=== PATIENT | female | born 1950 | race Caucasian/White ===

== ENCOUNTER 2017-04-19 09:25 | Outpatient (CLI) | payer MEDICARE, OTHER ==
[2014-11-23 09:52] VITALS: BP 107/61
--- NOTE | 2017-04-19 15:18 | Diagnostic Imaging Report ---
ALLEN THOMPSON [facility] [address] [facility] [address] [address] Report Submission Date: Apr 19, 2017 10:22:57 AM CDT Patient Study Name: JOSUE VENTURA Date: Apr 19, 2017 9:38:19 AM CDT Modality Type: CR Gender: F Description: UPPER EXTREMITY : 54 Institution: [facility] Physician: ALLEN THOMPSON Examination: Plain film hand History: Hand discomfort Comparison exams: None available Findings: 3 views the hand demonstrates osteopenia. Fracture at the base of the 5th metacarpal. Articular degenerative changes including the 1st carpal metacarpal articulation. No soft tissue abnormality. Impression: Fracture base 5th metacarpal Electronically signed on Apr 19, 2017 10:22:57 AM CDT by: Michele LEBLANC
== END 2017-04-19 09:26 ==
LOC: RAD 09:25
PROVIDERS: ATTEND Family Medicine
DX: R52 Pain, unspecified (principal)
CPT/HCPCS: 73130

== ENCOUNTER 2017-05-16 14:12 | Outpatient (CLI) | payer MEDICARE, OTHER ==
[2014-11-23 09:52] VITALS: BP 107/61
--- NOTE | 2017-05-16 21:20 | Diagnostic Imaging Report ---
DEA [facility] [address] [address] [facility] [address] [address] Report Submission Date: May 16, 2017 3:10:31 PM CDT Patient Study Name: JOSUE VENTURA Date: May 16, 2017 2:19:17 PM CDT Modality Type: CR Gender: F Description: UPPER EXTREMITY : 54 Institution: [facility] Physician: DEA Examination: Plain film hand History: Prior 5th metacarpal fracture Comparison exams: 19 April 2017 Findings: 3 views the hand demonstrates generalized osteopenia. Fracture with callus formation base 5th metacarpal. Articular degenerative changes. No soft tissue abnormalities. Impression: Fracture base 5th metacarpal with callus formation. Osteopenia and degenerative changes. Electronically signed on May 16, 2017 3:10:31 PM CDT by: Michele LEBLANC
== END 2017-05-16 14:13 ==
LOC: RAD 14:12
PROVIDERS: ATTEND Family Medicine
DX: S62.336D Displaced fracture of neck of fifth metacarpal bone, right hand, subsequent encounter for fracture with routine healing (principal); X58.XXXA Exposure to other specified factors, initial encounter; Y93.9 Activity, unspecified; Y99.9 Unspecified external cause status
CPT/HCPCS: 73130

== ENCOUNTER 2017-06-08 13:36 | Outpatient (CLI) | payer MEDICARE, OTHER ==
[2014-11-23 09:52] VITALS: BP 107/61
--- NOTE | 2017-06-08 15:42 | Diagnostic Imaging Report ---
DEA [facility] [address] [address] [facility] [address] [address] Report Submission Date: Jun 08, 2017 2:23:02 PM CDT Patient Study Name: JOSUE VENTURA Date: Jun 08, 2017 1:42:04 PM CDT Modality Type: CR Gender: F Description: UPPER EXTREMITY : 54 Institution: [facility] Physician: DEA Examination: Plain film hand History: Prior 5th metacarpal fracture Comparison exams: 16 May 2017 and 19 April 2017 Findings: 3 views the hand demonstrates generalized osteopenia. Fracture deformity at the base of the 5th metacarpal. Callus formation. Scattered articular degenerative changes. No obvious soft tissue abnormality. Impression: Healing fracture base 5th metacarpal with callus formation. No new fracture lines identified. Generalized osteopenia and articular degenerative changes. Electronically signed on Jun 08, 2017 2:23:02 PM CDT by: Michele LEBLANC
== END 2017-06-08 13:37 ==
LOC: RAD 13:36
PROVIDERS: ATTEND Family Medicine
DX: S62.336D Displaced fracture of neck of fifth metacarpal bone, right hand, subsequent encounter for fracture with routine healing (principal); X58.XXXA Exposure to other specified factors, initial encounter; Y93.9 Activity, unspecified; Y99.9 Unspecified external cause status
CPT/HCPCS: 73130

== ENCOUNTER 2017-07-18 14:53 | Outpatient (CLI) | payer MEDICARE, OTHER ==
[2014-11-23 09:52] VITALS: BP 107/61
--- NOTE | 2017-07-19 11:36 | OP Clinic Progress Note ---
REASON FOR VISIT: Sanjuana is a 70-year-old lady with a lesion above tooth 8 and noted by her dentist. There is a dark bluish area above tooth 8. There is an absent tooth just anterior to that. There is a sore area in the midline on the hard palate just behind the 2 medial incisors. She does wear a partial over that area but that area blanches easily. It is just minimally discolored and has more of a little red hue to it. This appears to be secondary to a compressive effect from the partial that sits right on top of it. The dark bluish lesion, although it appears to probably be more vascular, still remains of some concern. The patient is given the option of watchful waiting or biopsy. She has chosen a biopsy. Four or five drops of 1:100,000 epinephrine and Xylocaine was locally injected. A biopsy was taken and the microscope was used to do this to try to make sure there was adequate tissue. I tried to do this and get adequate tissue without leaving too large of an area at the biopsy site. The patient tolerated the procedure well. PLAN: She is discharged to follow up next week. I encouraged either a soft diet or chewing on the left side and using mouthwash or Lavoris and very lightly maybe finger cleaning it if it gets a small wet scab on it. cc: Dr. Sahra LEBLANC
== END 2017-07-18 15:00 ==
LOC: ENT 14:53
PROVIDERS: ATTEND Otolaryngology
DX: K13.79 Other lesions of oral mucosa (principal)
CPT/HCPCS: 40808; G0463

== ENCOUNTER 2017-07-25 13:13 | Outpatient (CLI) | payer MEDICARE, OTHER ==
[2014-11-23 09:52] VITALS: BP 107/61
--- NOTE | 2017-07-26 12:35 | OP Clinic Progress Note ---
REASON FOR VISIT: Sanjuana is seen in follow up of a biopsy of a darkish discoloration of tissue above about tooth #8. Last week that was biopsied in the office under local anesthetic which the patient tolerated. Looking in the mouth, it appears to be healing adequately. There is still a soft coagulum. There is no evidence of infection. I also looked in the nose to see if there is any discoloration of mucous membranes there. I personally talked with the pathologist looking the biopsy tissue. The mucosal appears to be non-malignant. Under this, there is a stratum level of darkish material and some foreign body reaction. It appears to be more of amalgam leaching from dental fillings more than likely. In any event, it is not malignant and that is the best interpretation from the pathologist. Two pathologists have looked at it and I personally talked with the pathologist. PLAN: At this point, I believe it needs no further treatment. Although the biopsy site is not totally healed yet, it appears to be healing adequately. No further treatment. cc: MURALI Workman
== END 2017-07-25 13:14 ==
LOC: ENT 13:13
PROVIDERS: ATTEND Otolaryngology
DX: K13.79 Other lesions of oral mucosa (principal)
CPT/HCPCS: G0463

== ENCOUNTER 2018-03-11 07:25 | Day surgery (SDC) | payer MEDICARE, OTHER ==
[2014-11-23 09:52] VITALS: BP 107/61
[~2018-03-11 07:25] MED LIST: LACTATED RINGERS 1,000 ML IV.SOLN IV ONE; PROPOFOL 200 MG/20 ML VIAL IV ONE; SALINE FLUSH 10 ML DISP.SYRIN IVF ONE
--- NOTE | 2018-03-14 09:36 | GI Report ---
REFERRING PHYSICIAN: Dr. Sahra Piña QUALITY PROJECT MANAGER: Ismael Turk MD PROCEDURE MEDICATION: Propofol as per anesthesia. INDICATIONS: This is a 67-year-old woman who lives in a nursing care facility after a stroke. She has had Parra's esophagus. There has been no dysplasia in the past. She is on a qaax-nvu-m-half of medications but omeprazole or a PPI is not listed on her medication list. She denies any change in her swallowing. PROCEDURE PERFORMED: Endoscopy and biopsies. PROCEDURE: An Olympus video endoscope is passed through the esophagus under direct visualization. She does have severe distal esophagitis with some ulcerations and some bleeding and at least a 4 to 5 cm segment of Parra's, a large hiatal hernia, and a wide open GE junction. Fundus, body, and antrum of the stomach are normal. Pylorus is open. Duodenal bulb and first part of the duodenum exam was normal. We came back and biopsied the distal 4 or 5 cm of the esophagus. She has severe esophagitis and probably persistent Parra's. RECOMMENDATIONS: 1. She really needs to be indefinitely on a PPI. I am not sure why that is not on her medication list. 2. She needs to sleep with her bed elevated at least 3 inches. 3. No eating late at night. 4. Pending the biopsies, she may need to be looked at again in 3 years, but she definitely needs to be on a PPI daily indefinitely. cc: Dr. Sahra Piña. [facility]
== END 2018-03-11 07:26 ==
LOC: OPSURG 07:25
PROVIDERS: ATTEND Internal Medicine Gastroenterology
DX: K22.70 Barrett's esophagus without dysplasia (principal)
CPT/HCPCS: 43239; 88305; 88313; J2704; J7120; S1016

== ENCOUNTER 2019-03-25 18:14 | Outpatient (CLI) | payer MEDICARE, OTHER ==
[2014-11-23 09:52] VITALS: BP 107/61
[2019-03-25 18:25] LABS: BASOPHILS % 0.5 % (0.0-1.5); NEUTROPHILS # 16.2 # k/uL (1.4-7.7)
[2019-03-25 18:49] LABS: eGFR (Non-African) > 60
== END 2019-03-25 18:16 ==
LOC: LAB 18:14
PROVIDERS: ATTEND Family Medicine
DX: D64.9 Anemia, unspecified (principal); I10 Essential (primary) hypertension
CPT/HCPCS: 80053; 85025

== ENCOUNTER 2019-03-28 09:25 | Inpatient (IN) | payer MEDICARE, OTHER ==
[2019-03-28] MEDS ORDERED: 0.9 % SODIUM CHLORIDE 1,000 ML IV ONE (09:46)
[2019-03-28] MEDS ORDERED: IPRATROPIUM/ALBUTEROL SULFATE 3 ML AMPUL.NEB NEB ONE ×2 (09:54→09:55)
--- NOTE | 2019-03-28 09:54 | ED Physician Documentation ---
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 She had been started on antibiotic two days ago for URI. She has started to run a fever and she has shortness of breath) - ROS CONST: fever, recent illness EYES/ENT: denies: sore throat, nasal drainage, nasal congestion CVS/RESP: shortness of breath, cough. denies: chest pain GI/: none MS/SKIN/LYMPH: none NEURO/PSYCH: denies: headache, fainting, dizziness, tingling, numbness, difficulty walking - PAST HX Past History: hypertension Surgeries/Procedures: other (Unknown) Immunizations: UTD Allergies/Adverse Reactions: Allergies Allergy/AdvReac Type Severity Reaction Status Date / Time morphine Allergy Verified 03/28/19 10:00 Home Medications: Ambulatory Orders Medication Instructions Recorded Acetaminophen [Tylenol] 2 tab PO Q4 PRN 03/28/19 Baclofen 0.5 tab PO HS 03/28/19 Benztropine Mesylate [Cogentin] 1 tab PO BID 03/28/19 Carbidopa/Levodopa (Nf) [Sinemet 1 tab PO TID 03/28/19 Cr 25-100 (Nf)] Carboxymethylcellulos/Glycerin 1 drop OP HS 03/28/19 [Refresh Optive Gel Eye Drops] Carboxymethylcellulose Sodium 1 drop OP TID 03/28/19 [Refresh Tears] Citalopram Hydrobromide [Celexa] 1 tab PO DAILY 03/28/19 Citalopram Hydrobromide [Celexa] 1 tab PO DAILY 03/28/19 Ferrous Sulfate [Iron] 1 tab PO DAILY 03/28/19 Gabapentin [Neurontin] 1 tab PO BID 03/28/19 Ibuprofen [Ibu] 1 tab PO Q6 PRN 03/28/19 Ipratropium/Albuterol Sulfate 1 vial INH Q4 PRN 03/28/19 [Duoneb] Loperamide HCl [Loperamide] 1 tab PO PRN PRN 03/28/19 Mag Hydrox/Aluminum Hyd/Simeth 30 ml PO PRN PRN 03/28/19 [Mylanta] Olanzapine [Zyprexa] 1 tab PO DAILY 03/28/19 Olanzapine [Zyprexa] 1 tab PO HS 03/28/19 Omeprazole (Nf) [Prilosec (Nf)] 1 tab PO DAILY 03/28/19 Simethicone [Gas-X] 1 tab PO PRN PRN 03/28/19 Thiamine HCl [Vitamin B-1] 1 tab PO DAILY 03/28/19 Topiramate [Topamax] 1 tab PO DAILY 03/28/19 Topiramate [Topamax] 1.5 tab PO HS 03/28/19 traZODone HCL [Desyrel] 0.5 tab PO Q8 03/28/19 - SOCIAL HX Smoking History: non-smoker Alcohol Use: none Drug Use: none - FAMILY HX Family History: No - VITAL SIGNS Vital Signs: Vital Signs Temp Pulse Resp BP Pulse Ox 107/61 11/23/14 09:51 - REVIEWED ASSESSMENTS Nursing Assessment Reviewed: Yes Vitals Reviewed: Yes Progress - Progress Progress: 1030: mild improvement in wheezing post neb DG 1045: Discussed case with Dr Lange - pt failed outpt treatment and is in need of oxygen supplementation - will admit pt DG ED Results Lab/Radiology - Radiology Radiology Impressions: Exam: AP chest. History: Pneumonia. No previous studies are available for comparison. Perihilar infiltrates are noted. Left basilar atelectasis with pleural effusions are noted. Cardiac silhouette is prominent with atherosclerotic plaques seen in the aorta. Impression: Perihilar infiltrates. Left basilar atelectasis with pleural effusion. Electronically signed on Mar 28, 2019 10:09:18 AM CDT by: Jeffrey Layton - Orders Orders: ED Orders Category Date Time Status IV Started NOW Care 03/28/19 09:46 Ordered CHEST 1VIEW [RAD] Stat Exams 03/28/19 Ordered BLOOD CULTURE Stat Lab 03/28/19 Ordered CBC/PLATELET/DIFF Stat Lab 03/28/19 09:45 Ordered CMP Stat Lab 03/28/19 09:45 Ordered LACTATE Stat Lab 03/28/19 Ordered 0.9 % Sodium Chloride [Normal Saline] 1,000 ml Med 03/28/19 09:46 Ordered IV NOW General Adult Physical Exam - PHYSICAL EXAM GENERAL APPEARANCE: no distress EENT: eye inspection normal, dry mucous membranes NECK: normal inspection RESPIRATORY: no resp distress, wheezes CVS: reg rate & rhythm, heart sounds normal, equal pulses ABDOMEN: soft, no organomegaly, normal bowel sounds, no abdominal bruit, no distension BACK: normal inspection SKIN: warm/dry, pallor EXTREMITIES: non-tender NEURO: oriented X3, sensation nml, mood/affect nml, other (per staff with her she has not had any change in mental status ) Discharge Clincal Impression: Pneumonia Qualifiers: Pneumonia type: due to unspecified organism Laterality: bilateral Lung location: unspecified part of lung Qualified Code(s): J18.9 - Pneumonia, unspecified organism Referrals: Sahra Piña MD [Primary Care Provider] - 2 Days Disposition: 09 ADMITTED INPATIENT Decision to Admit: [id number] Date of Decison to Admit: 03/28/19 Decision Time: 10:48
[2019-03-28 10:06] LABS: BASOPHILS % 0.5 % (0.0-1.5); NEUTROPHILS # 10.5 # k/uL (1.4-7.7)
--- NOTE | 2019-03-28 10:10 | Diagnostic Imaging Report ---
HELLEN TIMMONS [facility] [address] [facility] [address] [place], [place]. [address] Report Submission Date: Mar 28, 2019 10:09:18 AM CDT Patient Study Name: JOSUE VENTURA Date: Mar 28, 2019 9:46:20 AM CDT Modality Type: DX Gender: F Description: CHEST 1VIEW : 54 Institution: [facility] Physician: HELLEN TIMMONS Exam: AP chest. History: Pneumonia. No previous studies are available for comparison. Perihilar infiltrates are noted. Left basilar atelectasis with pleural effusions are noted. Cardiac silhouette is prominent with atherosclerotic plaques seen in the aorta. Impression: Perihilar infiltrates. Left basilar atelectasis with pleural effusion. Electronically signed on Mar 28, 2019 10:09:18 AM CDT by: Jeffrey LEBLANC
[2019-03-28 10:18] LABS: eGFR (Non-African) > 60
[2019-03-28] MEDS ORDERED: methylPREDNISolone SOD SUCC 125 MG/2 ML VIAL IVP ONE (10:46)
[2019-03-28] MEDS ORDERED: cefTRIAXone SODIUM 1 GM in 0.9 % SODIUM CHLORIDE 50 ML IV ONE (10:46)
[2019-03-28 12:10] VITALS: BMI 23.2
[2019-03-28] MEDS: ENOXAPARIN SODIUM 40 MG/0.4 ML DISP.SYRIN SQ SCH (13:00)
[2019-03-28] MEDS: 0.9 % SODIUM CHLORIDE 1,000 ML IV SCH (13:00)
[2019-03-28] MEDS ORDERED: 0.9 % SODIUM CHLORIDE 250 ML IV ONE (13:19)
[2019-03-28] MEDS ORDERED: AZITHROMYCIN 500 MG VIAL IV ONE (13:19)
--- NOTE | 2019-03-28 13:34 | History and Physical Report ---
History of Present Illnes - History of Present Illness Reason for Visit: Pneumonia, mental status changes, hypotension, dehydration History of Present Illness: This is a 68 year old female resident of [facility] who has been having some increased dyspnea and was noted to have an elevated WBCof 18K three days ago. Since then, she has continued to deteriorate. She has been on amoxicillin since approximately Sunday. She presented to the ER today due to having worsened dyspnea and decreased sensorium. She was found to have an infiltrate (films are unavailable to me at the time of this writing). WBC is improved. 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: CVA (brainstem bleed), Other (Parkinson's disease) Gastrointestinal: GERD Heme/Onc: Anemia NOS Psych: Anxiety, Depression, Psychosis, Other (Schizoaffective disorder, insomnia) - Past Surgical History Past Surgical History: Other (Patient cannot state, and no surgical history is noted in her notes.) - Past Social History Smoke: No Alcohol: None Drugs: None Lives: Jail Domestic Violence: Negative - Health Maintenance Health Maintenance: Cholesterol Influenza Vaccine: Current for this Influenza Season Pneumonia Vaccine: Yes Resuscitation Status: Resusciation Status Resuscitation Status Do Not Resuscitate - Unable to Obtain History Unable to Obtain: Yes Review of Systems - Review of Systems Constitutional: negative: Other Eyes: negative: other ENT: negative: Other Respiratory: Cough, Shortness of Breath Cardiovascular: negative: Chest Pain Gastrointestinal: negative: Nausea Genitourinary: negative: Dysuria Musculoskeletal: negative: Neck Pain Skin: negative: Rash Neurological: Weakness, Confusion - Medications/Allergies Allergies/Adverse Reactions: Allergies Allergy/AdvReac Type Severity Reaction Status Date / Time morphine Allergy Verified 03/28/19 10:00 Home Medications: Home Medications Acetaminophen [Tylenol] 2 tab PO Q4 PRN 03/28/19 Baclofen 0.5 tab PO HS 03/28/19 Benztropine Mesylate [Cogentin] 1 tab PO BID 03/28/19 Carbidopa/Levodopa (Nf) [Sinemet Cr 25-100 (Nf)] 1 tab PO TID 03/28/19 Carboxymethylcellulos/Glycerin [Refresh Optive Gel Eye Drops] 1 drop OP HS Carboxymethylcellulose Sodium [Refresh Tears] 1 drop OP TID 03/28/19 Citalopram Hydrobromide [Celexa] 1 tab PO DAILY 03/28/19 Citalopram Hydrobromide [Celexa] 1 tab PO DAILY 03/28/19 Ferrous Sulfate [Iron] 1 tab PO DAILY 03/28/19 Gabapentin [Neurontin] 1 tab PO BID 03/28/19 Ibuprofen [Ibu] 1 tab PO Q6 PRN 03/28/19 Ipratropium/Albuterol Sulfate [Duoneb] 1 vial INH Q4 PRN 03/28/19 Loperamide HCl [Loperamide] 1 tab PO PRN PRN 03/28/19 Mag Hydrox/Aluminum Hyd/Simeth [Mylanta] 30 ml PO PRN PRN 03/28/19 Olanzapine [Zyprexa] 1 tab PO DAILY 03/28/19 Olanzapine [Zyprexa] 1 tab PO HS 03/28/19 Omeprazole (Nf) [Prilosec (Nf)] 1 tab PO DAILY 03/28/19 Simethicone [Gas-X] 1 tab PO PRN PRN 03/28/19 Thiamine HCl [Vitamin B-1] 1 tab PO DAILY 03/28/19 Topiramate [Topamax] 1 tab PO DAILY 03/28/19 Topiramate [Topamax] 1.5 tab PO HS 03/28/19 traZODone HCL [Desyrel] 0.5 tab PO Q8 03/28/19 Current Inpatient Medications: Current Inpatient Medications Benztropine Mesylate (Cogentin) mg PO BID SHILO Carbidopa/Levodopa (Sinemet 25-100) 1 each PO TID SHILO Enoxaparin Sodium (Lovenox) 40 mg SQ DAILY [facility] Stop: 04/11/19 11:59 Ferrous Sulfate (Feosol) 325 mg PO 1100 SHIOL Gabapentin (Neurontin) 600 mg PO TID SHILO Sodium Chloride (Normal Saline) 1,000 mls @ 100 mls/hr IV Q10H SHILO Azithromycin 500 mg/ Sodium (Chloride) 250 mls @ 250 mls/hr IV Q24H SHILO Stop: 04/01/19 12:59 Ceftriaxone Sodium 1 gm/ (Sodium Chloride) 50 mls @ 100 mls/hr IV DAILY SHILO Ipratropium [place] (Atrovent Inh Soln) 0.5 mg NEB Q4 SHILO Olanzapine (Zyprexa Odt) 5 mg PO HS SHILO Olanzapine (Zyprexa Odt) 2.5 mg PO AM SHILO Topiramate (Topamax) mg PO DAILY SHILO Topiramate (Topamax) mg PO HS SHILO Exam - Exam Vital Signs: Vital Signs (72 hours) 03/28/19 03/28/19 03/28/19 09:25 11:35 12:01 Temperature 98.1 F 98.1 F 98.0 F Pulse Rate [ 72 Left] Pulse Rate [ 108 H 108 H Right Pulse ox] Respiratory 24 24 18 Rate Blood Pressure 75/54 75/54 82/58 [Left Arm] O2 Sat by Pulse 81 L 91 L 98 Oximetry 03/28/19 12:03 Temperature 98.0 F Pulse Rate [ 72 Left] Pulse Rate [ Right Pulse ox] Respiratory 18 Rate Blood Pressure 82/58 [Left Arm] O2 Sat by Pulse 98 Oximetry General: Other (Agonal breathing is noted. She is minimally responsive). No: Alert, Oriented to Person, Oriented to Place, Oriented to Time HEENT: Other (left facial paralysis is noted). No: Atraumatic Neck: No: Stridor Lungs: Respiratory Distress, Wheezes (with periods of apnea) Cardiovascular: Regular rate Murmur: No: Systolic Murmur Murmur Location: No: [place] Abdomen: Normal bowel sounds, Soft, No tenderness Genitourinary: No: Other Male Genitourinary: No: Other Female Genitourinary: No: Other Integumentary: No: Other Extremities: No tenderness/swelling Neurological: Strength Equal Bilat (in upper extremities she has reconciliation specialist with very slow response time. Plantar flexion of the right foot is noted against resistance is noted. This is not noted in the left foot. ). No: Normal gait, Normal speech Psych/Mental Status: No: Mental status NL - Laboratory Results Laboratory Results: Laboratory Results 03/28/19 03/28/19 09:45 09:45 WBC 11.80 RBC 4.46 Hgb 14.2 Hct 43.6 MCV 98.0 MCH 31.9 MCHC 32.7 RDW 12.6 Plt Count 228 Neut % (Auto) 88.8 H Lymph % (Auto) 2.4 L [place] % (Auto) 7.2 Eos % (Auto) 1.1 Baso % (Auto) 0.5 Neut # (Auto) 10.5 H Lymph # (Auto) 0.3 L [place] # (Auto) 0.9 Eos # (Auto) 0.1 Baso # (Auto) 0.1 Sodium 143 Potassium 3.4 L Chloride 108 H Carbon Dioxide 25 BUN 12 Creatinine 1.09 H Estimated Creat Clear 56 Est GFR ( Amer) > 60 Est GFR (Non-Af Amer) > 60 Glucose 185 H Lactate 4.0 H Calcium 9.5 Total Bilirubin 0.5 AST 30 ALT 26 Alkaline Phosphatase 70 Total Protein 7.2 Albumin 4.3 Assessment/Plan - Assessment/Plan (1) Pneumonia Status: Acute Current Visit: Yes Qualifiers: Pneumonia type: due to unspecified organism Laterality: bilateral Lung location: unspecified part of lung Qualified Code(s): J18.9 - Pneumonia, unspecified organism Assessment: Currently on Azithromycin and ceftriaxone. Plan: She is certainly in a very jacinto condition We will honor her NCB status (2) Hypotension Status: Acute Current Visit: Yes (3) History of CVA (cerebrovascular accident) Status: Acute Current Visit: Yes Assessment: She is not anticoagulated, and notes from her neurologist suggest that this was a hemorrhagic stroke. (4) Parkinsons disease Status: Acute Current Visit: Yes Assessment: Continue Sinemet (5) Schizoaffective disorder Status: Acute Current Visit: Yes Qualifiers: Schizoaffective disorder type: depressive Qualified Code(s): F25.1 - Schizoaffective disorder, depressive type (6) Depression Status: Acute Current Visit: Yes Qualifiers: Depression Type: major depressive disorder Major depression recurrence: recurrent Active/Remission status: currently active Psychotic features: with psychotic features VTE Assessment - RISK FACTOR SCORE VTE RISK FACTOR SCORES: AGE OVER 60 YEARS, ACUTE INFECTION OTHER THEN SEPSIS - RISK VTE MODERATE RISK: SCORE OF 2 (RISK PROXIMAL DVT 2-4%) PROPHYAXIS NEEDED (Hold anticoagulation due to history of brainstem bleed.)
[2019-03-28] MEDS: AZITHROMYCIN 500 MG in 0.9 % SODIUM CHLORIDE 250 ML IV SCH (13:55)
[2019-03-28] MEDS: GABAPENTIN 300 MG CAPSULE PO SCH ×2 (13:55→18:44)
[2019-03-28] MEDS: LEVODOPA PO SCH ×2 (13:56→18:44)
[2019-03-28] MEDS: IPRATROPIUM BROMIDE 0.5 MG/2.5 ML AMPUL.NEB NEB SCH ×3 (13:56→22:09)
[2019-03-28] MEDS: CARBIDOPA PO SCH ×2 (13:56→18:44)
[2019-03-29] MEDS: IPRATROPIUM BROMIDE 0.5 MG/2.5 ML AMPUL.NEB NEB SCH ×6 (00:47→20:20)
[2019-03-29] MEDS ORDERED: 0.9 % SODIUM CHLORIDE 1,000 ML IV ONE (01:11)
[2019-03-29] MEDS: 0.9 % SODIUM CHLORIDE 1,000 ML IV SCH (01:20)
[2019-03-29 07:36] LABS: BASOPHILS % 0.5 % (0.0-1.5); NEUTROPHILS # 11.4 # k/uL (1.4-7.7)
[2019-03-29 07:38] LABS: eGFR (Non-African) > 60
[2019-03-29] MEDS ORDERED: cefTRIAXone SODIUM 1 GM in 0.9 % SODIUM CHLORIDE 50 ML IV SCH (09:00)
[2019-03-29] MEDS: ENOXAPARIN SODIUM 40 MG/0.4 ML DISP.SYRIN SQ SCH (09:30)
--- NOTE | 2019-03-29 09:36 | Inpatient Progress Note ---
Subjective - Required Recertification Statement I anticipate X number of days because-include discharge plan: 2 - Review of Systems Events since last encounter: Danisha has had a remarkable improvement since admission. She is now alert and oriented. She does not remember yesterday. Her blood pressure is still soft, and IVF are running. She ate most of her breakfast and is not having any nausea. She is coughing, and would like some cough medicine for this. She is currently on 6LNC with a pulse oximetry of 92%. General: Denies: Chills, Night Sweats HEENT: Denies: Head Aches Pulmonary: Dyspnea, Cough Cardiovascular: Denies: Chest Pain, Palpitations Gastrointestinal: Denies: Nausea Genitourinary: Denies: Dysuria Musculoskeletal: Denies: Neck Pain, Shoulder Pain Neurological: Weakness. Denies: Confusion Objective - Exam Vitals and I&O: Vital Signs Temp 98.1 F 03/29/19 06:00 Pulse 99 H 03/29/19 06:00 Resp 18 03/29/19 06:00 BP 110/67 03/29/19 06:00 Pulse Ox 95 03/29/19 06:00 Intake & Output 03/28/19 03/28/19 03/29/19 11:59 23:59 11:59 Intake Total 340 360 Output Total 800 Balance -460 360 Weight 59.421 kg 59.421 kg 69.127 kg Intake: IV 100 Right Hand 100 Oral 240 360 Output: Urine 800 Other: Voiding Method Bedside Commode General: Alert, Oriented to Person, Oriented to Place, Oriented to Time, Cooperative HEENT: Atraumatic, Nose Mucous membr. moist/[place]. No: Scleral Icterus Neck: Supple, No JVD Lungs: Wheezes, Rales, Rhonchi, Prolonged Expiration Cardiovascular: Regular rate Abdomen: Normal bowel sounds, Soft, No tenderness Extremities: No clubbing, No cyanosis, No edema Skin: Normal, Pale Neurological: Normal speech Psych/Mental Status: Mental status NL (at baseline) - Results Results: Laboratory Results WBC 13.20 K/ul (4.00-12.00) H 03/29/19 07:05 RBC 3.86 M/ul (3.90-5.20) L 03/29/19 07:05 Hgb 12.3 g/dL (11.5-16.0) 03/29/19 07:05 Hct 37.0 % (34.5-46.5) 03/29/19 07:05 MCV 96.0 fl (80.0-100.0) 03/29/19 07:05 MCH 32.0 pg (28.0-34.0) 03/29/19 07:05 MCHC 33.3 g/dL (30.0-36.0) 03/29/19 07:05 RDW 12.6 % (11.3-14.3) 03/29/19 07:05 Plt Count 202 K/mm3 (130-400) 03/29/19 07:05 Neut % (Auto) 86.5 % (39.0-79.0) H 03/29/19 07:05 Lymph % (Auto) 6.0 % (16.0-50.0) L 03/29/19 07:05 [place] % (Auto) 6.2 % (0.0-11.0) 03/29/19 07:05 Eos % (Auto) 0.8 % (0.0-6.8) 03/29/19 07:05 Baso % (Auto) 0.5 % (0.0-1.5) 03/29/19 07:05 Neut # (Auto) 11.4 # k/uL (1.4-7.7) H 03/29/19 07:05 Lymph # (Auto) 0.8 # k/uL (0.6-4.0) 03/29/19 07:05 [place] # (Auto) 0.8 # k/uL (0.0-0.9) 03/29/19 07:05 Eos # (Auto) 0.1 # k/uL (0.0-0.6) 03/29/19 07:05 Baso # (Auto) 0.1 # k/uL (0.0-0.5) 03/29/19 07:05 Sodium 139 mmol/L (137-145) 03/29/19 07:05 Potassium 4.2 mmol/L (3.5-5.1) 03/29/19 07:05 Chloride 109 mmol/L (98-107) H 03/29/19 07:05 Carbon Dioxide 24 mmol/L (22-30) 03/29/19 07:05 BUN 17 mg/dL (7-17) 03/29/19 07:05 Creatinine 0.74 mg/dL (0.52-1.04) 03/29/19 07:05 Estimated Creat Clear 96 03/29/19 07:05 Est GFR ( Amer) > 60 (60-) 03/29/19 07:05 Est GFR (Non-Af Amer) > 60 (60-) 03/29/19 07:05 Glucose 110 mg/dL (74-106) H 03/29/19 07:05 Lactate 4.0 U/L (0.7-2.1) H 03/28/19 09:45 Calcium 8.5 mg/dL (8.4-10.2) 03/29/19 07:05 Total Bilirubin 0.2 mg/dL (0.2-1.3) 03/29/19 07:05 AST 55 U/L (15-46) H 03/29/19 07:05 ALT 14 U/L (13-69) 03/29/19 07:05 Alkaline Phosphatase 58 U/L (38-126) 03/29/19 07:05 Total Protein 6.1 g/dL (6.3-8.2) L 03/29/19 07:05 Albumin 3.5 g/dL (3.5-5.0) 03/29/19 07:05 Stool Guaiac Test Negative (NEGATIVE) 03/28/19 05:15 Assessment/Plan - Assessment/Plan (1) Pneumonia Status: Acute Current Visit: Yes Qualifiers: Pneumonia type: due to unspecified organism Laterality: bilateral Lung location: unspecified part of lung Qualified Code(s): J18.9 - Pneumonia, unspecified organism Assessment: Continue Azithromycin and ceftriaxone (2) Hypotension Status: Acute Current Visit: Yes Assessment: Improved, continue IVF, encourage PO fluid intake (3) History of CVA (cerebrovascular accident) Status: Acute Current Visit: Yes Assessment: No history of acute event (4) Parkinsons disease Status: Acute Current Visit: Yes (5) Schizoaffective disorder Status: Acute Current Visit: Yes Qualifiers: Schizoaffective disorder type: depressive Qualified Code(s): F25.1 - Schizoaffective disorder, depressive type Assessment: Chronic Plan: Continue Zyprexa and Topamax (6) Depression Status: Acute Current Visit: Yes Qualifiers: Depression Type: major depressive disorder Major depression recurrence: recurrent Active/Remission status: currently active Psychotic features: with psychotic features Assessment: Continue Zyprexa and Topiramate
[2019-03-29] MEDS ORDERED: BENZOCAINE/MENTHOL 1 EACH LOZENGE MM PRN (09:51)
[2019-03-29] MEDS ORDERED: guaiFENesin DM 100 MG/10 MG/5 ML 118ML BOTTLE PO PRN (09:51)
[2019-03-29] MEDS ORDERED: AZITHROMYCIN 500 MG VIAL IV ONE (10:14)
[2019-03-29] MEDS ORDERED: 0.9 % SODIUM CHLORIDE 100 ML IV ONE (10:15)
[2019-03-29] MEDS ORDERED: cefTRIAXone SODIUM 1 GM INJ ONE (10:16)
[2019-03-29] MEDS ORDERED: 0.9 % SODIUM CHLORIDE 250 ML IV ONE (10:16)
[2019-03-29] MEDS: CARBIDOPA PO SCH ×3 (10:18→17:35)
[2019-03-29] MEDS: LEVODOPA PO SCH ×3 (10:18→17:35)
[2019-03-29] MEDS: GABAPENTIN 300 MG CAPSULE PO SCH ×3 (10:21→17:36)
[2019-03-29] MEDS: FERROUS SULFATE 325 MG TABLET PO SCH (11:30)
[2019-03-29] MEDS: AZITHROMYCIN 500 MG in 0.9 % SODIUM CHLORIDE 250 ML IV SCH (14:22)
[2019-03-29] MEDS: CEFUROXIME AXETIL 250 MG TABLET PO SCH (20:30)
[2019-03-30] MEDS: IPRATROPIUM BROMIDE 0.5 MG/2.5 ML AMPUL.NEB NEB SCH ×5 (01:10→17:39)
[2019-03-30] MEDS ORDERED: CARBIDOPA PO ONE (09:24)
[2019-03-30] MEDS ORDERED: LEVODOPA PO ONE (09:24)
[2019-03-30] MEDS: CEFUROXIME AXETIL 250 MG TABLET PO SCH (09:33)
[2019-03-30] MEDS: AZITHROMYCIN 250 MG TABLET PO SCH (09:34)
[2019-03-30] MEDS: ENOXAPARIN SODIUM 40 MG/0.4 ML DISP.SYRIN SQ SCH (09:35)
[2019-03-30] MEDS: GABAPENTIN 300 MG CAPSULE PO SCH ×3 (09:35→18:04)
[2019-03-30] MEDS: CARBIDOPA PO SCH ×3 (09:39→18:04)
[2019-03-30] MEDS: LEVODOPA PO SCH ×3 (09:39→18:04)
[2019-03-30] MEDS: FERROUS SULFATE 325 MG TABLET PO SCH (11:25)
--- NOTE | 2019-03-30 11:44 | Inpatient Progress Note ---
Subjective - Required Recertification Statement I anticipate X number of days because-include discharge plan: 1 - Review of Systems Events since last encounter: Danisha continues to improve. She is still coughing but breathing better. She is alert and oriented. General: Denies: Chills, Night Sweats HEENT: Denies: Head Aches Pulmonary: Dyspnea, Cough Cardiovascular: Denies: Chest Pain Gastrointestinal: Denies: Nausea, Vomiting Genitourinary: Denies: Dysuria Musculoskeletal: Denies: Neck Pain Neurological: Weakness. Denies: Change in Speech, Confusion Objective - Exam Vitals and I&O: Vital Signs Temp 98.3 F 03/30/19 10:00 Pulse 92 H 03/30/19 10:00 Resp 18 03/30/19 10:00 BP 100/56 03/30/19 10:00 Pulse Ox 93 03/30/19 10:00 Intake & Output 03/29/19 03/29/19 03/30/19 11:59 23:59 11:59 Intake Total 360 800 240 Output Total 800 850 Balance 360 0 -610 Weight 69.127 kg 70.392 kg Intake: Oral 360 800 240 Output: Urine 800 850 Other: Voiding Method Indwelling Catheter Indwelling Catheter Indwelling Catheter # Bowel Movements 1 General: Alert, Oriented to Person, Oriented to Place, Oriented to Time, No acute distress HEENT: Atraumatic, PERRLA Neck: Supple, No JVD Lungs: Wheezes, Rales, Rhonchi, Prolonged Expiration, Decreased Air Movement Cardiovascular: Regular rate Abdomen: Normal bowel sounds Extremities: No clubbing, No cyanosis Skin: Normal, [place] Neurological: Normal gait Psych/Mental Status: Mental status NL Other physical findings: Left sided facial paralysis is noted, unchanged from last exam. Muniz catheter in place (will remove this morning) - Results Results: Laboratory Results WBC 13.20 K/ul (4.00-12.00) H 03/29/19 07:05 RBC 3.86 M/ul (3.90-5.20) L 03/29/19 07:05 Hgb 12.3 g/dL (11.5-16.0) 03/29/19 07:05 Hct 37.0 % (34.5-46.5) 03/29/19 07:05 MCV 96.0 fl (80.0-100.0) 03/29/19 07:05 MCH 32.0 pg (28.0-34.0) 03/29/19 07:05 MCHC 33.3 g/dL (30.0-36.0) 03/29/19 07:05 RDW 12.6 % (11.3-14.3) 03/29/19 07:05 Plt Count 202 K/mm3 (130-400) 03/29/19 07:05 Neut % (Auto) 86.5 % (39.0-79.0) H 03/29/19 07:05 Lymph % (Auto) 6.0 % (16.0-50.0) L 03/29/19 07:05 [place] % (Auto) 6.2 % (0.0-11.0) 03/29/19 07:05 Eos % (Auto) 0.8 % (0.0-6.8) 03/29/19 07:05 Baso % (Auto) 0.5 % (0.0-1.5) 03/29/19 07:05 Neut # (Auto) 11.4 # k/uL (1.4-7.7) H 03/29/19 07:05 Lymph # (Auto) 0.8 # k/uL (0.6-4.0) 03/29/19 07:05 [place] # (Auto) 0.8 # k/uL (0.0-0.9) 03/29/19 07:05 Eos # (Auto) 0.1 # k/uL (0.0-0.6) 03/29/19 07:05 Baso # (Auto) 0.1 # k/uL (0.0-0.5) 03/29/19 07:05 Sodium 139 mmol/L (137-145) 03/29/19 07:05 Potassium 4.2 mmol/L (3.5-5.1) 03/29/19 07:05 Chloride 109 mmol/L (98-107) H 03/29/19 07:05 Carbon Dioxide 24 mmol/L (22-30) 03/29/19 07:05 BUN 17 mg/dL (7-17) 03/29/19 07:05 Creatinine 0.74 mg/dL (0.52-1.04) 03/29/19 07:05 Estimated Creat Clear 96 03/29/19 07:05 Est GFR ( Amer) > 60 (60-) 03/29/19 07:05 Est GFR (Non-Af Amer) > 60 (60-) 03/29/19 07:05 Glucose 110 mg/dL (74-106) H 03/29/19 07:05 Lactate 4.0 U/L (0.7-2.1) H 03/28/19 09:45 Calcium 8.5 mg/dL (8.4-10.2) 03/29/19 07:05 Total Bilirubin 0.2 mg/dL (0.2-1.3) 03/29/19 07:05 AST 55 U/L (15-46) H 03/29/19 07:05 ALT 14 U/L (13-69) 03/29/19 07:05 Alkaline Phosphatase 58 U/L (38-126) 03/29/19 07:05 Total Protein 6.1 g/dL (6.3-8.2) L 03/29/19 07:05 Albumin 3.5 g/dL (3.5-5.0) 03/29/19 07:05 Stool Guaiac Test Negative (NEGATIVE) 03/28/19 05:15 Assessment/Plan - Assessment/Plan (1) Pneumonia Status: Acute Current Visit: Yes Qualifiers: Pneumonia type: due to unspecified organism Laterality: bilateral Lung location: unspecified part of lung Qualified Code(s): J18.9 - Pneumonia, unspecified organism Assessment: Continue current antibiotic therapy (2) Hypotension Status: Acute Current Visit: Yes Assessment: Encourage PO fluid intake (3) History of CVA (cerebrovascular accident) Status: Acute Current Visit: Yes Assessment: No new ischemia (4) Parkinsons disease Status: Acute Current Visit: Yes Assessment: Continue current dose of Sinemet (5) Schizoaffective disorder Status: Acute Current Visit: Yes Qualifiers: Schizoaffective disorder type: depressive Qualified Code(s): F25.1 - Schizoaffective disorder, depressive type Assessment: Continue Zyprexa and Topiramate (6) Depression Status: Acute Current Visit: Yes Qualifiers: Depression Type: major depressive disorder Major depression recurrence: recurrent Active/Remission status: currently active Psychotic features: with psychotic features
[2019-03-30] MEDS ORDERED: IPRATROPIUM/ALBUTEROL SULFATE 3 ML AMPUL.NEB NEB ONE (22:17)
[2019-03-31] MEDS: IPRATROPIUM BROMIDE 0.5 MG/2.5 ML AMPUL.NEB NEB SCH ×7 (00:31→20:10)
[2019-03-31] MEDS: GABAPENTIN 300 MG CAPSULE PO SCH ×3 (08:01→18:06)
[2019-03-31] MEDS: ENOXAPARIN SODIUM 40 MG/0.4 ML DISP.SYRIN SQ SCH (08:01)
[2019-03-31] MEDS: CARBIDOPA PO SCH ×3 (08:02→18:06)
[2019-03-31] MEDS: AZITHROMYCIN 250 MG TABLET PO SCH (08:02)
[2019-03-31] MEDS: LEVODOPA PO SCH ×3 (08:02→18:06)
[2019-03-31] MEDS: CEFUROXIME AXETIL 250 MG TABLET PO SCH ×2 (08:02→20:06)
[2019-03-31] MEDS: BENZTROPINE MESYLATE 0.5 MG TAB PO SCH ×4 (10:33→20:06)
[2019-03-31] MEDS: TOPIRAMATE 50 MG TABLET PO SCH ×2 (10:36→20:06)
[2019-03-31] MEDS: FERROUS SULFATE 325 MG TABLET PO SCH (12:13)
--- NOTE | 2019-03-31 13:20 | Inpatient Progress Note ---
Subjective - Required Recertification Statement I anticipate X number of days because-include discharge plan: 1 - Review of Systems Events since last encounter: Danisha is feeling a little weak today. We tried to get her weaned to 5LNC, however her pulse oximetry is only 87% on 5L, so we increased her back to 6LNC. She is a little more sleepy today. General: Denies: Chills, Night Sweats HEENT: Denies: Head Aches Pulmonary: Dyspnea, Cough Cardiovascular: Denies: Chest Pain Gastrointestinal: Denies: Nausea, Vomiting Genitourinary: Denies: Dysuria Musculoskeletal: Denies: Neck Pain, Deferred Neurological: Weakness. Denies: Change in Speech, Confusion Objective - Exam Vitals and I&O: Vital Signs Temp 97.7 F 03/31/19 09:11 Pulse 115 H 03/31/19 09:11 Resp 20 03/31/19 09:11 BP 117/75 03/31/19 09:11 Pulse Ox 90 L 03/31/19 10:00 Intake & Output 03/30/19 03/31/19 03/31/19 23:59 11:59 23:59 Intake Total 480 220 Output Total 600 850 Balance -120 -630 Weight 60.781 kg Intake: Oral 480 220 Output: Urine 600 850 Other: Voiding Method Bedside Commode Indwelling Catheter # Bowel Movements 0 General: Alert, Oriented to Person, Oriented to Place, Oriented to Time, Cooperative, Mild distress (respiratory) HEENT: Atraumatic, PERRLA, Other (left facial paralysis is noted) Neck: Supple, No JVD Lungs: Respiratory Distress, Wheezes, Rhonchi, Decreased Air Movement Cardiovascular: Regular rate Abdomen: Normal bowel sounds, Soft, No tenderness Extremities: No clubbing, No cyanosis Skin: Normal Neurological: Normal speech (at baseline) Psych/Mental Status: Mental status NL (at baseline) - Results Results: Laboratory Results WBC 13.20 K/ul (4.00-12.00) H 03/29/19 07:05 RBC 3.86 M/ul (3.90-5.20) L 03/29/19 07:05 Hgb 12.3 g/dL (11.5-16.0) 03/29/19 07:05 Hct 37.0 % (34.5-46.5) 03/29/19 07:05 MCV 96.0 fl (80.0-100.0) 03/29/19 07:05 MCH 32.0 pg (28.0-34.0) 03/29/19 07:05 MCHC 33.3 g/dL (30.0-36.0) 03/29/19 07:05 RDW 12.6 % (11.3-14.3) 03/29/19 07:05 Plt Count 202 K/mm3 (130-400) 03/29/19 07:05 Neut % (Auto) 86.5 % (39.0-79.0) H 03/29/19 07:05 Lymph % (Auto) 6.0 % (16.0-50.0) L 03/29/19 07:05 [place] % (Auto) 6.2 % (0.0-11.0) 03/29/19 07:05 Eos % (Auto) 0.8 % (0.0-6.8) 03/29/19 07:05 Baso % (Auto) 0.5 % (0.0-1.5) 03/29/19 07:05 Neut # (Auto) 11.4 # k/uL (1.4-7.7) H 03/29/19 07:05 Lymph # (Auto) 0.8 # k/uL (0.6-4.0) 03/29/19 07:05 [place] # (Auto) 0.8 # k/uL (0.0-0.9) 03/29/19 07:05 Eos # (Auto) 0.1 # k/uL (0.0-0.6) 03/29/19 07:05 Baso # (Auto) 0.1 # k/uL (0.0-0.5) 03/29/19 07:05 Sodium 139 mmol/L (137-145) 03/29/19 07:05 Potassium 4.2 mmol/L (3.5-5.1) 03/29/19 07:05 Chloride 109 mmol/L (98-107) H 03/29/19 07:05 Carbon Dioxide 24 mmol/L (22-30) 03/29/19 07:05 BUN 17 mg/dL (7-17) 03/29/19 07:05 Creatinine 0.74 mg/dL (0.52-1.04) 03/29/19 07:05 Estimated Creat Clear 96 03/29/19 07:05 Est GFR ( Amer) > 60 (60-) 03/29/19 07:05 Est GFR (Non-Af Amer) > 60 (60-) 03/29/19 07:05 Glucose 110 mg/dL (74-106) H 03/29/19 07:05 Lactate 4.0 U/L (0.7-2.1) H 03/28/19 09:45 Calcium 8.5 mg/dL (8.4-10.2) 03/29/19 07:05 Total Bilirubin 0.2 mg/dL (0.2-1.3) 03/29/19 07:05 AST 55 U/L (15-46) H 03/29/19 07:05 ALT 14 U/L (13-69) 03/29/19 07:05 Alkaline Phosphatase 58 U/L (38-126) 03/29/19 07:05 Total Protein 6.1 g/dL (6.3-8.2) L 03/29/19 07:05 Albumin 3.5 g/dL (3.5-5.0) 03/29/19 07:05 Stool Guaiac Test Negative (NEGATIVE) 03/28/19 05:15 Assessment/Plan - Assessment/Plan (1) Pneumonia Status: Acute Current Visit: Yes Qualifiers: Pneumonia type: due to unspecified organism Laterality: bilateral Lung location: unspecified part of lung Qualified Code(s): J18.9 - Pneumonia, unspecified organism Assessment: Continue current antibiotics HFN Continue supplemental oxygen (2) Hypotension Status: Acute Current Visit: Yes Qualifiers: Hypotension type: orthostatic hypotension Qualified Code(s): I95.1 - Orthostatic hypotension Assessment: Continue to push IVF (3) History of CVA (cerebrovascular accident) Status: Acute Current Visit: Yes Assessment: Remote history (4) Parkinsons disease Status: Acute Current Visit: Yes (5) Schizoaffective disorder Status: Acute Current Visit: Yes Qualifiers: Schizoaffective disorder type: depressive Qualified Code(s): F25.1 - Schizoaffective disorder, depressive type Assessment: Continue Zyprexa and Topiramate (6) Depression Status: Acute Current Visit: Yes Qualifiers: Depression Type: major depressive disorder Major depression recurrence: recurrent Active/Remission status: currently active Psychotic features: with psychotic features
--- NOTE | 2019-03-31 17:09 | Diagnostic Imaging Report ---
ROCHELLE HOLT [facility] [address] [facility] [address] [address] Report Submission Date: Mar 31, 2019 4:55:22 PM CDT Patient Study Name: JOSUE VENTURA Date: Mar 31, 2019 1:38:00 PM CDT Modality Type: DX Gender: F Description: CHEST 2VIEW : 54 Institution: [facility] Physician: ROCHELLE HOLT Exam: Chest two views. History: Shortness of breath. The examination is compared to study dated March 28, 2019. Persistent perihilar and bibasilar infiltrates are noted. Right pleural effusions are noted. Heart size is stable with atherosclerotic plaques seen in the aorta. Marked dilatation of the esophagus and stomach is again identified. Impression: Persistent perihilar and bibasilar infiltrates. Right pleural effusion. Marked distention of the esophagus and stomach is noted. Electronically signed on Mar 31, 2019 4:55:22 PM CDT by: Jeffrey LEBLANC
[2019-03-31] MEDS: TOPIRAMATE 100 MG TABLET PO SCH ×2 (19:12→19:16)
[2019-04-01] MEDS: IPRATROPIUM BROMIDE 0.5 MG/2.5 ML AMPUL.NEB NEB SCH ×6 (01:30→20:11)
[2019-04-01] MEDS: ENOXAPARIN SODIUM 40 MG/0.4 ML DISP.SYRIN SQ SCH (08:24)
[2019-04-01] MEDS: LEVODOPA PO SCH ×3 (08:24→17:26)
[2019-04-01] MEDS: GABAPENTIN 300 MG CAPSULE PO SCH ×3 (08:24→17:25)
[2019-04-01] MEDS: CARBIDOPA PO SCH ×3 (08:24→17:26)
[2019-04-01] MEDS: BENZTROPINE MESYLATE 0.5 MG TAB PO SCH ×2 (08:24→20:05)
[2019-04-01] MEDS: CEFUROXIME AXETIL 250 MG TABLET PO SCH ×2 (08:25→20:05)
[2019-04-01] MEDS: AZITHROMYCIN 250 MG TABLET PO SCH (08:25)
[2019-04-01] MEDS: TOPIRAMATE 50 MG TABLET PO SCH ×2 (08:25→20:05)
[2019-04-01] MEDS: FERROUS SULFATE 325 MG TABLET PO SCH (12:39)
--- NOTE | 2019-04-01 18:35 | Inpatient Progress Note ---
Subjective - Required Recertification Statement I anticipate X number of days because-include discharge plan: 1 - Review of Systems Events since last encounter: Danisha's oxygen requirements have come down significantly, and she is ambulating now at 4 LNC with her saturations in the low 90s. She says that she is feeling much better also. General: Denies: Chills, Night Sweats HEENT: Denies: Head Aches Pulmonary: Dyspnea, Cough Cardiovascular: Denies: Chest Pain Gastrointestinal: Denies: Nausea, Vomiting Genitourinary: Denies: Dysuria Musculoskeletal: Denies: Neck Pain Neurological: Weakness. Denies: Confusion Objective - Exam Vitals and I&O: Vital Signs Temp 98.7 F 04/01/19 17:58 Pulse 104 H 04/01/19 17:58 Resp 18 04/01/19 17:58 BP 91/59 04/01/19 17:58 Pulse Ox 91 L 04/01/19 17:58 Intake & Output 03/31/19 04/01/19 04/01/19 23:59 11:59 23:59 Intake Total 700 340 360 Output Total 1375 300 500 Balance -675 40 -140 Weight 134 kg Intake: Oral 700 340 360 Output: Urine 1375 300 500 Other: Voiding Method Indwelling Catheter Indwelling Catheter # Bowel Movements 1 0 General: Alert, Oriented to Person, Oriented to Place HEENT: Atraumatic, Other (left facial paralysis is noted.) Neck: Supple Lungs: Wheezes, Prolonged Expiration, Decreased Air Movement Cardiovascular: Regular rate Abdomen: Normal bowel sounds Extremities: No clubbing, No cyanosis, No edema Neurological: Normal speech Psych/Mental Status: Mental status NL (at baseline) - Results Results: Laboratory Results WBC 13.20 K/ul (4.00-12.00) H 03/29/19 07:05 RBC 3.86 M/ul (3.90-5.20) L 03/29/19 07:05 Hgb 12.3 g/dL (11.5-16.0) 03/29/19 07:05 Hct 37.0 % (34.5-46.5) 03/29/19 07:05 MCV 96.0 fl (80.0-100.0) 03/29/19 07:05 MCH 32.0 pg (28.0-34.0) 03/29/19 07:05 MCHC 33.3 g/dL (30.0-36.0) 03/29/19 07:05 RDW 12.6 % (11.3-14.3) 03/29/19 07:05 Plt Count 202 K/mm3 (130-400) 03/29/19 07:05 Neut % (Auto) 86.5 % (39.0-79.0) H 03/29/19 07:05 Lymph % (Auto) 6.0 % (16.0-50.0) L 03/29/19 07:05 [place] % (Auto) 6.2 % (0.0-11.0) 03/29/19 07:05 Eos % (Auto) 0.8 % (0.0-6.8) 03/29/19 07:05 Baso % (Auto) 0.5 % (0.0-1.5) 03/29/19 07:05 Neut # (Auto) 11.4 # k/uL (1.4-7.7) H 03/29/19 07:05 Lymph # (Auto) 0.8 # k/uL (0.6-4.0) 03/29/19 07:05 [place] # (Auto) 0.8 # k/uL (0.0-0.9) 03/29/19 07:05 Eos # (Auto) 0.1 # k/uL (0.0-0.6) 03/29/19 07:05 Baso # (Auto) 0.1 # k/uL (0.0-0.5) 03/29/19 07:05 Sodium 139 mmol/L (137-145) 03/29/19 07:05 Potassium 4.2 mmol/L (3.5-5.1) 03/29/19 07:05 Chloride 109 mmol/L (98-107) H 03/29/19 07:05 Carbon Dioxide 24 mmol/L (22-30) 03/29/19 07:05 BUN 17 mg/dL (7-17) 03/29/19 07:05 Creatinine 0.74 mg/dL (0.52-1.04) 03/29/19 07:05 Estimated Creat Clear 96 03/29/19 07:05 Est GFR ( Amer) > 60 (60-) 03/29/19 07:05 Est GFR (Non-Af Amer) > 60 (60-) 03/29/19 07:05 Glucose 110 mg/dL (74-106) H 03/29/19 07:05 Lactate 4.0 U/L (0.7-2.1) H 03/28/19 09:45 Calcium 8.5 mg/dL (8.4-10.2) 03/29/19 07:05 Total Bilirubin 0.2 mg/dL (0.2-1.3) 03/29/19 07:05 AST 55 U/L (15-46) H 03/29/19 07:05 ALT 14 U/L (13-69) 03/29/19 07:05 Alkaline Phosphatase 58 U/L (38-126) 03/29/19 07:05 Total Protein 6.1 g/dL (6.3-8.2) L 03/29/19 07:05 Albumin 3.5 g/dL (3.5-5.0) 03/29/19 07:05 Stool Guaiac Test Negative (NEGATIVE) 03/28/19 05:15 Assessment/Plan - Assessment/Plan (1) Pneumonia Status: Acute Current Visit: Yes Qualifiers: Pneumonia type: due to unspecified organism Laterality: bilateral Lung location: unspecified part of lung Qualified Code(s): J18.9 - Pneumonia, unspecified organism Assessment: Continue azithromycin and rocephin/nebulizers/wean oxygen Hope for discharge back to [facility] tomorrow. (2) Hypotension Status: Acute Current Visit: Yes Qualifiers: Hypotension type: orthostatic hypotension Qualified Code(s): I95.1 - Orthostatic hypotension Assessment: Continued, but with improved general condition (3) History of CVA (cerebrovascular accident) Status: Acute Current Visit: Yes Assessment: Remote (4) Parkinsons disease Status: Acute Current Visit: Yes Assessment: Continue current dose of Sinemet (5) Schizoaffective disorder Status: Acute Current Visit: Yes Qualifiers: Schizoaffective disorder type: depressive Qualified Code(s): F25.1 - Schizoaffective disorder, depressive type (6) Depression Status: Acute Current Visit: Yes Qualifiers: Depression Type: major depressive disorder Major depression recurrence: recurrent Active/Remission status: currently active Psychotic features: with psychotic features
[2019-04-02] MEDS: IPRATROPIUM BROMIDE 0.5 MG/2.5 ML AMPUL.NEB NEB SCH ×4 (01:29→14:29)
[2019-04-02 08:58] VITALS: BP 136/74
[2019-04-02] MEDS: BENZTROPINE MESYLATE 0.5 MG TAB PO SCH (09:02)
[2019-04-02] MEDS: GABAPENTIN 300 MG CAPSULE PO SCH ×2 (09:02→14:29)
[2019-04-02] MEDS: SIMETHICONE 80 MG TAB.CHEW PO SCH ×2 (09:02→12:34)
[2019-04-02] MEDS: CEFUROXIME AXETIL 250 MG TABLET PO SCH (09:02)
[2019-04-02] MEDS: LEVODOPA PO SCH ×2 (09:05→14:29)
[2019-04-02] MEDS: CARBIDOPA PO SCH ×2 (09:05→14:29)
[2019-04-02] MEDS: AZITHROMYCIN 250 MG TABLET PO SCH (09:05)
[2019-04-02] MEDS: ENOXAPARIN SODIUM 40 MG/0.4 ML DISP.SYRIN SQ SCH (09:05)
[2019-04-02] MEDS: TOPIRAMATE 50 MG TABLET PO SCH (09:05)
[2019-04-02] MEDS: FERROUS SULFATE 325 MG TABLET PO SCH (11:00)
--- NOTE | 2019-04-02 14:52 | Discharge Summary ---
Discharge Summary - Discharge [facility] Admission Date: 03/28/19 Discharge Date: 04/02/19 Discharge To: Care Home ([facility]) History of Present Illness: This is a 68 year old female resident of [facility] who has been having some increased dyspnea and was noted to have an elevated WBCof 18K three days ago. Since then, she has continued to deteriorate. She has been on amoxicillin since approximately Sunday. She presented to the ER today due to having worsened dyspnea and decreased sensorium. She was found to have an infiltrate (films are unavailable to me at the time of this writing). Condition at Discharge: Stable Home Medications: Ambulatory Orders Medication Instructions Recorded Acetaminophen [Tylenol] 2 tab PO Q4 PRN 03/28/19 Baclofen 0.5 tab PO HS 03/28/19 Benztropine Mesylate [Cogentin] 1 tab PO BID 03/28/19 Carbidopa/Levodopa (Nf) [Sinemet 1 tab PO TID 03/28/19 Cr 25-100 (Nf)] Carboxymethylcellulos/Glycerin 1 drop OP HS 03/28/19 [Refresh Optive Gel Eye Drops] Carboxymethylcellulose Sodium 1 drop OP TID 03/28/19 [Refresh Tears] Citalopram Hydrobromide [Celexa] 1 tab PO DAILY 03/28/19 Citalopram Hydrobromide [Celexa] 1 tab PO DAILY 03/28/19 Ferrous Sulfate [Iron] 1 tab PO DAILY 03/28/19 Gabapentin [Neurontin] 1 tab PO BID 03/28/19 Ibuprofen [Ibu] 1 tab PO Q6 PRN 03/28/19 Ipratropium/Albuterol Sulfate 1 vial INH Q4 PRN 03/28/19 [Duoneb] Loperamide HCl [Loperamide] 1 tab PO PRN PRN 03/28/19 Mag Hydrox/Aluminum Hyd/Simeth 30 ml PO PRN PRN 03/28/19 [Mylanta] Olanzapine [Zyprexa] 1 tab PO DAILY 03/28/19 Olanzapine [Zyprexa] 1 tab PO HS 03/28/19 Omeprazole (Nf) [Prilosec (Nf)] 1 tab PO DAILY 03/28/19 Simethicone [Gas-X] 1 tab PO PRN PRN 03/28/19 Thiamine HCl [Vitamin B-1] 1 tab PO DAILY 03/28/19 Topiramate [Topamax] 1 tab PO DAILY 03/28/19 Topiramate [Topamax] 1.5 tab PO HS 03/28/19 traZODone HCL [Desyrel] 0.5 tab PO Q8 03/28/19 Consultations this Visit: None Procedures this Visit: Other (Indwelling singletary catheter placement) Allergies/Adverse Reactions: Allergies Allergy/AdvReac Type Severity Reaction Status Date / Time morphine Allergy Verified 03/28/19 10:00 Patient Problems: Current Active Problems Problem Status Onset Depression Acute History of CVA (cerebrovascular accident) Acute Hypotension Acute Parkinsons disease Acute Pneumonia Acute Schizoaffective disorder Acute Discharge Summary: Patient was admitted for treatment of pneumonia and mental status changes. On admission the patient was obtunded and minimally responsive, however with hydration and antibiotics, she improved significantly. Her oxygen requirements were significantly elevated on hospital day 2 and she was placed on a NRB at 13 liters. She became more awake, and oxygen was able to be weaned down to 6 LNC with saturations in the low 90s by discharge. She was discharged back to [facility] on 6 LNC and with continuation of her medications as prior to admission and the addition of cefuroxime 250 mg po BID with OT/PT consults on discharge.
== END 2019-04-02 10:25 | disposition home or self-care (01) | DRG 194 ==
LOC: ED 09:25 → SOUTH 11:14 → UNDOADMIN 11:14 → SOUTH 11:27 → UNDOADMIN 11:28 → SOUTH 11:28
PROVIDERS: ADMIT Family Medicine; ATTEND Family Medicine
DX: J18.9 Pneumonia, unspecified organism (principal); F33.3 Major depressive disorder, recurrent, severe with psychotic symptoms; I10 Essential (primary) hypertension; Z66 Do not resuscitate; E86.0 Dehydration; G20 Parkinson's disease; K21.9 Gastro-esophageal reflux disease without esophagitis; I95.1 Orthostatic hypotension; D64.9 Anemia, unspecified; F41.9 Anxiety disorder, unspecified; G51.0 Bell's palsy; Z86.73 Personal history of transient ischemic attack (TIA), and cerebral infarction without residual deficits; Z88.5 Allergy status to narcotic agent; Z79.899 Other long term (current) drug therapy
CPT/HCPCS: 71045; 71046; 80053; 82270; 83605; 85025; 87040; 93005; 94640; 94760; 97112; 97116; 97161; 97165; 97530; 97535; A9270; J0456; J0696; J1650; J2930; J3490; J7030; J7050; 99283; S1016

== ENCOUNTER 2019-05-22 11:00 | Outpatient (CLI) | payer MEDICARE, OTHER | END 2019-05-22 11:03 | LOC: LAB 11:00 | PROVIDERS: ATTEND Family Medicine | DX: I10 Essential (primary) hypertension (principal); I95.9 Hypotension, unspecified | CPT/HCPCS: 36415; 85651; 86140; P9604 ==

== ENCOUNTER 2019-05-23 10:48 | Outpatient (CLI) | payer MEDICARE, OTHER ==
--- NOTE | 2019-05-23 14:20 | Diagnostic Imaging Report ---
ROCHELLE HOLT [facility] [address] [facility] [address] [place] [address]. [id number] Report Submission Date: May 23, 2019 11:57:30 AM CDT Patient Study Name: JOSUE VENTURA Date: May 23, 2019 11:22:05 AM CDT Modality Type: CT\SR Gender: F Description: CT BRAIN W/O CONTRAST : 54 Institution: [facility] Physician: ROCHELLE HOLT Examination: CT head without contrast History: HEADACHES AFTER OLD INJURY Comparison exam: None available Technique: Noncontrast head CT protocol. Findings: Ventricles and sulci are consistent for patient age. Cerebrocerebellar parenchyma demonstrates periventricular low attenuation consistent with small vessel disease. No evidence for parenchymal hemorrhage. No evidence for mass or mass effect. No midline shift. No extra axial fluid collections. Partial visualization of the paranasal sinuses, mastoid air cells, orbits, skull and scalp without gross irregularity. Impression: Age related changes. No acute parenchymal process. No hemorrhage. Electronically signed on May 23, 2019 11:57:30 AM CDT by: Michele LEBLANC
== END 2019-05-23 10:50 ==
LOC: LAB 10:48
PROVIDERS: ATTEND Psychiatry & Neurology Neurology
DX: F25.9 Schizoaffective disorder, unspecified (principal); G43.909 Migraine, unspecified, not intractable, without status migrainosus; D64.9 Anemia, unspecified; F41.8 Other specified anxiety disorders; I10 Essential (primary) hypertension; F29 Unspecified psychosis not due to a substance or known physiological condition; K21.9 Gastro-esophageal reflux disease without esophagitis; G47.00 Insomnia, unspecified; G21.19 Other drug induced secondary parkinsonism; Z88.6 Allergy status to analgesic agent; Z86.73 Personal history of transient ischemic attack (TIA), and cerebral infarction without residual deficits
CPT/HCPCS: 70450

== ENCOUNTER 2019-08-07 08:51 | Outpatient (CLI) | payer MEDICARE, OTHER ==
[2019-08-07 09:02] LABS: BASOPHILS % 0.2 % (0.0-1.5); eGFR (Non-African) > 60
== END 2019-08-07 08:56 ==
LOC: LAB 08:51
PROVIDERS: ATTEND Family Medicine
DX: D64.9 Anemia, unspecified (principal); I10 Essential (primary) hypertension
CPT/HCPCS: 36415; 80048; 84439; 84443; 84481; 85025; P9604

== ENCOUNTER 2019-09-12 13:09 | Outpatient (CLI) | payer MEDICARE, OTHER ==
[2019-09-12 13:16] LABS: eGFR (Non-African) > 60
[2019-09-12 16:15] LABS: NEUTROPHILS # 2.8 # k/uL (1.4-7.7)
[2019-09-12 16:20] LABS: APPEARANCE,URINE CLOUDY (CLEAR); COLOR,URINE YELLOW (YELLOW); OCCULT BLOOD,URINE NEGATIVE (NEGATIVE); PH URINE 8.5 (5.0 - 8.0)
== END 2019-09-12 13:14 ==
LOC: LAB 13:09
PROVIDERS: ATTEND Family Medicine
DX: F25.9 Schizoaffective disorder, unspecified (principal); F29 Unspecified psychosis not due to a substance or known physiological condition; R41.82 Altered mental status, unspecified
CPT/HCPCS: 36415; 80053; 81002; 85025; P9604